=== PATIENT | male | born 1995 | race Caucasian/White ===

== ENCOUNTER → 2020-08-06 11:07 | Outpatient (BNVA) | payer OTHER, SELFPAY | PROVIDERS: PCP Internal Medicine; Visit Provider Urology | DX: R30.0 Dysuria (principal); Z87.442 Personal history of urinary calculi | CPT/HCPCS: 51798 ==

== ENCOUNTER 2020-08-14 17:13 | Emergency (ER) | payer OTHER, SELFPAY ==
[2020-08-14 17:36] VITALS: BP 142/94; PULSE 107; RESP 16; TEMP 36.7; O2SAT 97; BMI 30.2
--- NOTE | 2020-08-14 18:05 | ED.MALEGU ---
HPI - Male Genitourinary General Chief complaint: Urogenital-Male Stated complaint: ABD PAIN Time Seen by Provider: 08/14/20 17:54 Source: patient Mode of arrival: ambulatory Limitations: no limitations History of Present Illness HPI Narrative: Patient comes to the emergency room complaining of dysuria. Patient states he has no abdominal pain or flank pain. Patient states on June 30 he had a right renal stone for which she needed lithotripsy, and the left retained stent was removed. Patient has been doing well since then other than the burning sensation. Denies fever or chills. Patient denies hematuria. Patient denies any suspicion of any sexually transmitted diseases MD Complaint: dysuria Onset (ago): day(s) Severity: mild Exacerbating factors: urination Related Data Previous Rx's Medication Instructions Recorded levofloxacin 500 mg PO Q24H #7 tab 08/14/20 Allergies Allergy/AdvReac Type Severity Reaction Status Date / Time penicillin G Allergy Unknown Verified 06/28/20 00:00 Penicillins [PCN] Allergy Unknown UNKNOWN Unverified 07/15/20 19:39 Review of Systems Review of Systems: Constitutional : No Weight loss, No Fever, No Chills, No Night Sweats, No Fatigue, No Malaise ENT/Mouth : No Hearing loss, No Ear Pain, No Nasal Congestion, No Sinus Pain, No Hoarseness, No sore throat, No Rhinorrhea, No Swallowing Difficulty Eyes: No Eye Pain, No Swelling, No Redness, No Foreign Body, No Discharge, No Vision Changes Cardiovascular : No Chest Pain, No SOB, No Dyspnea on Exertion, No Orthopnea, No Edema, No Palpitations Respiratory : No Cough, No Sputum, No Wheezing, No Smoke Exposure, No Dyspnea Gastrointestinal : No Nausea, No Vomiting, No Diarrhea, No Constipation, No abdominal Pain, No Hematochezia, No Melena Genitourinary : no irregular bleeding, mild Dysuria, No Urinary Frequency, No Hematuria, No Urinary Incontinence, No Urgency, No Flank Pain, No Urinary Flow Changes, No Hesitancy Musculoskeletal : No joint pain, No Myalgias, No Joint Swelling Skin : No Skin Lesions, No rash Neuro : No Weakness, No Numbness, No Paresthesias, No Loss of Consciousness, No Dizziness, No Headache Psych : No Anxiety/Panic, No Depression, No SI/HI/AH/VH, No Social Issues, Heme/Lymph: No Bruising, No Bleeding,No Lymphadenopathy Endocrine : No Polyuria, No Polydipsia, No Temperature Intolerance [facility] Past Medical History Medical History (Updated 08/14/20 @ 19:44 by Reta Askew MD) History of renal calculi Surgical History (Updated 08/14/20 @ 18:08 by Reta Askew MD) H/O lithotripsy Social History Social History Alcohol intake: never Smoking Status: Never smoker Smoked in Last 30 Days: No Use of substances other than those prescribed or required for medical reasons: No Advance Directives: No Advance Directives Information Provided: No Physical Exam Vital Signs: Vital Signs: Vital Signs Temp Pulse Resp BP Pulse Ox 08/14/20 17:36 98.1 F 107 H 16 142/94 H 97 Body Mass Index 30.2 Appearance: Alert. Oriented X3. No acute distress. Eyes: Pupils equal, round and reactive to light. ENT: Pharynx normal. Neck: Normal inspection. Neck supple. No lymph nodes noted. No crepitus CVS: Normal heart rate and rhythm. Pulses normal. Normal S1 and S2 Respiratory: No respiratory distress. Breath sounds normal. No Wheezing. No rales Abdomen: Soft and nontender. No rigidity. No distention. good BS x4 Skin: Skin warm and dry. Normal skin color. Normal skin turgor. Extremities: No lower extremity edema. No lower extremity edema. No Lacerations. No Rash Neuro: Oriented X 3. No motor deficit. No sensory deficit. Moving all extermities. No slurred speech. Course Course Course Narrative: I discussed the labs with the patient, patient has a mild urinary tract infection. MDM - Male Genitourinary MDM Narrative Medical decision making narrative: I discussed with the patient we will treat the urinary tract infection with p.o. antibiotics, at this time there is no suspicion for sepsis Differential Diagnosis Differential diagnosis: Likely urinary tract infection and urethritis Medical Records Attestation: I reviewed the patient's medical records. Lab Data Attestation: I reviewed the patient's lab results. Result diagrams: 08/14/20 18:41 08/14/20 18:41 Labs: Lab Results 10/17/20 10/17/20 10/17/20 Range/Units 18:41 18:41 18:41 WBC 10.5 (4.8-10.8) X10*3/uL RBC 4.55 L (4.60-5.80) X10*6/uL Hgb 14.3 (14.0-18.0) g/dl Hct 41.4 L (42-52) % MCV 91.0 (80-98) fL MCH 31.4 (27.0-33.0) pg MCHC 34.5 (31.0-36.0) g/dl RDW 12.8 (11.0-16.0) % Plt Count 310 (160-400) X10*3/uL MPV 10.0 (9.4-12.4) fL Immature Gran % (Auto) 0.4 (0.0-0.4) % Neut % (Auto) 72.5 (45-73) % Lymph % (Auto) 18.7 L (20-40) % [place] % (Auto) 7.8 (2-11) % Eos % (Auto) 0.4 (0-4) % Baso % (Auto) 0.2 (0-2) % Lymph # (Auto) 2.0 (1.2-4.9) X10*3/uL [place] # (Auto) 0.8 (0.1-1.2) X10*3/uL Eos # (Auto) 0.0 (0.0-0.4) X10*3/uL Baso # (Auto) 0.0 (0.0-0.2) X10*3/uL Abs Immat Gran (auto) 0.04 H (0.00-0.03) X10*3/uL Absolute Neuts (auto) 7.6 (2.0-8.3) X10*3/uL Absolute Nucleated RBC 0.000 (0.0-0.012) X10*3/uL Nucleated RBC % (auto) 0.0 (0.0-0.2) /100WBC Sodium 139 (135-145) mmol/L Potassium 3.6 (3.3-5.1) mmol/l Chloride 103 (96-108) mmol/L Carbon Dioxide 26 (22-29) mmol/L Anion Gap 14 (12-20) BUN 8 L (9-16) mg/dL Creatinine 0.87 (0.5-1.4) mg/dL Estim Creat Clear Calc 115.2 Estimated GFR > 60 Random Glucose 131 H (60-115) mg/dL Calcium 9.5 (8.4-10.2) mg/dL Urine Color YELLOW Urine Appearance CLEAR Urine pH 6.5 (5.0-8.0) Ur Specific [place] 1.010 (1.005-1.025) Urine Protein 1+ H (NEG-TRACE) MG/DL Urine Glucose (UA) NEG (NEG) MG/DL Urine Ketones NEG (NEG) MG/DL Urine Blood 3+ H (NEG) Urine Nitrite NEG (NEG) Ur Leukocyte Esterase 3+ H (NEG) Urine RBC 5-9 H (0) /HPF Urine WBC 10-14 H (0-4) /HPF Ur Squamous Epith Cells 1+ /LPF Urine Bacteria 1+ /LPF Discharge Plan Discharge Clinical Impression: Dysuria Urinary tract infection Qualifiers: Urinary tract infection type: acute cystitis Hematuria presence: without hematuria Qualified Code(s): N30.00 - Acute cystitis without hematuria Patient Disposition: Home, Self-Care Instructions: Urinary Tract Infection in Men (ED) Additional Instructions: Please follow-up with your urologist. Please follow-up with your primary care physician tomorrow. If you have any worsening or new symptoms, please return to the emergency room or call 911 Prescriptions: New levofloxacin 500 mg tablet 500 mg PO Q24H Qty: 7 RF: 0
[2020-08-14 18:46] LABS: MANUAL DIFF FLAG NO
[2020-08-14 18:47] LABS: Basophils Percent Auto 0.2 % (0-2); Eosinophils Percent Auto 0.4 % (0-4); Hematocrit 41.4 % (42-52); Hemoglobin 14.3 g/dl (14.0-18.0); Imm Gran Abs Auto 0.04 X10*3/uL (0.00-0.03); Imm Gran Pct Auto 0.4 % (0.0-0.4); Lymphocytes Percent Auto 18.7 % (20-40); Mean Corpuscular HGB Conc 34.5 g/dl (31.0-36.0); Mean Corpuscular Hemoglobin 31.4 pg (27.0-33.0); Monocytes Absolute Auto 0.8 X10*3/uL (0.1-1.2); Monocytes Percent Auto 7.8 % (2-11); Neutrophils Absolute Auto 7.6 X10*3/uL (2.0-8.3); Neutrophils Percent Auto 72.5 % (45-73); Platelet Count 310 X10*3/uL (160-400); Red Blood Count 4.55 X10*6/uL (4.60-5.80); Red Cell Distribution Width 12.8 % (11.0-16.0); White Blood Count 10.5 X10*3/uL (4.8-10.8)
[2020-08-14 18:48] LABS: Color Urine YELLOW; Glucose Urine UA NEG (NEG); Leukocyte Esterase Urine 3+ (NEG); Nitrite Urine NEG (NEG); PH 6.5 (5.0-8.0); Urine Blood 3+ (NEG); Urine Ketones NEG (NEG); Urine Protein 1+ MG/DL (NEG-TRACE)
[2020-08-14 18:49] LABS: Appearance Urine CLEAR
[2020-08-14 18:58] LABS: Bacteria Urine 1+ /LPF; Squamous Epithelial Cell Urine 1+ /LPF
[2020-08-14 19:19] LABS: Anion Gap 14 (12-20); Blood Urea Nitrogen 8 mg/dL (9-16); Carbon Dioxide 26 mmol/L (22-29); Chloride 103 mmol/L (96-108); Creatinine Clr Calc Pharmacy 115.2; Estimated Glomerular Filt Rate > 60; Glucose Random 131 mg/dL (60-115); Potassium 3.6 mmol/l (3.3-5.1); Sodium 139 mmol/L (135-145)
[2020-08-14 19:24] LABS: Calcium 9.5 mg/dL (8.4-10.2)
[2020-08-14 20:00] VITALS: BP 130/88; PULSE 92; RESP 16; TEMP 37; O2SAT 97
[2020-08-14] MEDS: levoFLOXacin 500 MG TABLET PO (20:14)
== END 2020-08-14 20:23 | disposition home or self-care (01) ==
PROVIDERS: Emergency Provider Emergency Medicine
DX: N30.00 Acute cystitis without hematuria (principal); Z87.442 Personal history of urinary calculi
CPT/HCPCS: 36415; 80048; 81001; 85025; 87086; 87088; 99283; 99284

== ENCOUNTER 2020-08-31 07:36 | Day surgery (SDC) | payer OTHER, SELFPAY ==
--- NOTE | 2020-08-30 11:52 | HO.ANESPROP2 ---
Documented by User: Tanesha Weber 08/30/20 11:54 HPI - Anesthesia Eval Consult details Narrative: 25yo M for cysto, foreign body removal PMFSH Past Medical History Medical History History of renal calculi Surgical History Surgical History H/O lithotripsy Social History Social History Alcohol intake: never Smoking Status: Never smoker Second Hand Smoke Exposure: No Use of substances other than those prescribed or required for medical reasons: No Have you been hit, kicked, punched, or otherwise hurt by someone within the past year? If so, by whom?: No Advance Directives: No Advance Directives Information Provided: No Advance Directives on File: No Meds Allergies Allergy/AdvReac Type Severity Reaction Status Date / Time Penicillins [PCN] Allergy Severe Anaphylaxis Verified 08/31/20 09:16 penicillin G Allergy Unknown Anaphylaxis Verified 08/31/20 08:53 Exam Exam Date and Time: August 30, 2020 1152 Pertinent Lab Results Pertinent Lab Results: Laboratory Tests 08/14/20 08/14/20 18:41 18:41 WBC 10.5 Hgb 14.3 Hct 41.4 L Plt Count 310 Sodium 139 Potassium 3.6 Chloride 103 BUN 8 L Creatinine 0.87 Assessment and Plan Assessment Anesthesia Assessment: Chart Reviewed Documented by User: Joseph Tompkins 08/31/20 10:44 PMFSH Past Medical History Medical History History of renal calculi Surgical History Surgical History H/O lithotripsy Social History Social History Alcohol intake: never Smoking Status: Never smoker Second Hand Smoke Exposure: No Use of substances other than those prescribed or required for medical reasons: No Have you been hit, kicked, punched, or otherwise hurt by someone within the past year? If so, by whom?: No Advance Directives: No Advance Directives Information Provided: No Advance Directives on File: No Meds Allergies Allergy/AdvReac Type Severity Reaction Status Date / Time Penicillins [PCN] Allergy Severe Anaphylaxis Verified 08/31/20 09:16 penicillin G Allergy Unknown Anaphylaxis Verified 08/31/20 08:53 Exam Airway Mallampati Class: III TM Dist: >3cm Neck ROM: Full Heart: RRR Assessment and Plan Assessment Anesthesia Assessment: Anesthesia Plan Discussed Final Anesthetic Review NPO: Yes ASA Class: I Final Preanesthetic Review: Consent Obtained/Reviewed Anesthetic Plan Anesthetic Plan: GA Disposition: Standard PACU
[2020-08-30 13:40] VITALS: BMI 29.2
[2020-08-31] VITALS (8 sets, daily range): BP systolic 104–148; BP diastolic 60–94; PULSE 71–97; RESP 14–20; TEMP 36.1–36.8; O2SAT 94–98
[2020-08-31] MEDS: Lactated Ringers 1,000 ML 100 ML IVCONT (09:16)
[2020-08-31] MEDS: Gentamicin Sulfate/NaCl 80 MG/100 ML PIGGYBACK 100 MG IV (09:17)
[2020-08-31] MEDS: levoFLOXacin/D5W 500 MG/100 ML PIGGYBACK 100 MG IV (09:17)
--- NOTE | 2020-08-31 10:37 | FL_ITS ---
EXAMINATION: XR FLUOROSCOPY WITH IMAGES CLINICAL INFORMATION: Cystoscopy. Foreign body removal. COMPARISON: Previous KUB June [address] intraoperative fluoroscopy exam May 2020 TECHNIQUE: Fluoroscopy performed by Dr. Roberto Graham. Fluoroscopy time: 13 seconds DAP: 4 mGycm2 Images: 1 FINDINGS: Single image demonstrates left renal calyceal dilatation. The left renal pelvis does not appear dilated. The visualized left proximal ureter does not appear dilated. Questioned left lower pole renal stone on KUB from June 2020 are not appreciated. Left ureteral stent is no longer seen. FL/FL guidance in OR IMPRESSION: Fluoroscopy guidance for left retrograde exam.
--- NOTE | 2020-08-31 10:52 | MHC.SHP ---
Pre-Procedural Eval Section B Chief Complaint: dysuria Details of Present Illness: dysuria Relevant Family History (Specify if Yes): No Relevant Social History: None Present Medications: see Short Stay Collaborative assessment Medical History: Significant History History of Previous Operations: Relevant previous surgery/procedure and date(s) Allergies: Allergies Allergy/AdvReac Type Severity Reaction Status Date / Time Penicillins [PCN] Allergy Severe Anaphylaxis Verified 08/31/20 09:16 penicillin G Allergy Unknown Anaphylaxis Verified 08/31/20 08:53 Review of Systems Sugical H&P ROS: Negative: Constitution, Cardiovascular, Respiratory, Neurological, Psychiatric, Hem-Onc, Allergic/Immunologic, Gastrointestinal, Genitourinary, Musculoskeletal, Integumentary, Endocrine and Eyes/Ears/Nose/Throat Exam Surgical H&P Exam: Normal: HEENT, Normal: Heart, Normal: Lungs, Normal: Extremities, Normal: Abdomen, Normal: Skin and Normal: Neurological Plan Diagnosis/Plan: Unchanged Patient has been examined and remains a candidate for the planned procedure
--- NOTE | 2020-08-31 11:37 | PM.OP ---
Brief Operative Note Date of procedure: 08/31/20 Pre-op diagnosis: Left ureteric stent Post-op diagnosis: same Procedure: Cysto stent removal Retrograde left Ureteroscopy left diagnostic Surgeon: Roberto Graham MD Anesthesia: GLMA Estimated blood loss (mL): 0 Condition: stable Disposition: same day
[2020-08-31] MEDS: Phenazopyridine HCL 100 MG TABLET PO (12:41)
--- NOTE | 2020-08-31 12:47 | HO.POSTANES ---
Post Anesthesia Evaluation Post Anesthesia Evaluation Vital Signs: Vital Signs Temp Pulse Resp BP Pulse Ox 08/31/20 12:25 97 F 97 16 115/72 96 08/31/20 12:12 82 16 114/70 96 08/31/20 11:57 89 20 110/60 94 08/31/20 11:52 97 18 104/71 95 08/31/20 11:47 92 17 106/61 98 08/31/20 11:42 74 16 109/64 94 08/31/20 11:37 98.2 F 71 14 109/60 97 08/31/20 08:54 97.8 F 88 16 148/94 H 96 Anesthesia: General Mental Status: Awake Pain Control: Satisfactory Nausea/Vomiting: None Hydration: Adequate Anesthesia-Related Issues: No Anes. Related Issues
--- NOTE | 2020-12-02 14:22 | P.OP_ITS ---
Operative Note Operative Note Date of Service: 08/31/20 Narrative: PreOperative Diagnosis: Nephrolithiasis Post Operative Diagnosis: Nephrolithiasis Procedure: 1) Cystoscopy with removal of left indwelling stent 2) left retrograde 3) left ureteroscopy Surgeon: Dr Roberto Graham Anesthesia: General Indications for procedure: Had pain and question of stone on the left side. Stent was placed. Here 1st stent removal and diagnostic ureteroscopy Procedure: After informed consent was verified the patient was brought to the operating room and placed in a supine position. anesthesia was administered per protocol. Patient was placed in modified dorsal lithotomy position and prepped and draped in a sterile fashion. Safety pause time-out performed. Twenty-two [place] cystoscope inserted per urethra. No anterior posterior urethra Stent seen coming from left ureteric office and removed Ureteroscopy performed with rigid ureteroscope. No abnormality noted of the ureter. May have passed a stone that was previously them. Decision made not to place stent Tolerated procedure well was extubated in operating room transferred in stable condition to the recovery area. Pathology: None Drains: None
== END 2020-08-31 12:56 | disposition home or self-care (01) ==
PROVIDERS: Visit Provider Urology
PROC: 0TJB8ZZ Inspection of Bladder, Via Natural or Artificial Opening Endoscopic (ICD-10-PCS; CPT 52000; principal; 2020-08-31 09:20)
DX: R30.0 Dysuria (principal); Z46.6 Encounter for fitting and adjustment of urinary device; Z96.0 Presence of urogenital implants; Z87.442 Personal history of urinary calculi; Z88.0 Allergy status to penicillin
CPT/HCPCS: 52310; C1758; C1769; J1580; J1956; J2250; J2405; J3010; Q9967

== ENCOUNTER 2022-06-25 13:00 | Emergency (ER) | payer OTHER, SELFPAY ==
--- NOTE | ~2022-06-25 | CT_ITS ---
EXAMINATION: CT CERVICAL SPINE without contrast CLINICAL INFORMATION: Reason for Exam neck pain radiating down L arm with numbness COMPARISON: No prior CT available, TECHNIQUE: Computed axial sagittal and coronal images acquired using department's standard protocol. This CT examination was performed using dose optimization techniques as appropriate, variously including the following: *Automated exposure control *Adjustment of mA and/or kV according to patient size (this includes techniques or standardized protocols for targeted exams where dose is matched to indication/reason for exam; i.e. extremities or head) *Use of iterative reconstruction technique CONTRAST: None DLP: 501 mGy-cm FINDINGS: SKULL BASE: Visualized structures at skull base are normal, Included facial sinuses are clear, CERVICAL VERTEBRAE: Seven cervical vertebrae identified maintaining proper height and alignment, DISCS: C1-C2: There is no CT evidence of significant osseous narrowing of the central canal or neural foramen. C2-C3: There is no CT evidence of significant osseous narrowing of the central canal or neural foramen. C3-C4: There is no CT evidence of significant osseous narrowing of the central canal or neural foramen. C4-C5: There is no CT evidence of significant osseous narrowing of the central canal or neural foramen. C5-C6: There is no CT evidence of significant osseous narrowing of the central canal or neural foramen. C6-C7: There is no CT evidence of significant osseous narrowing of the central canal or neural foramen. C7-T1: There is no CT evidence of significant osseous narrowing of the central canal or neural foramen. PARAVERTEBRAL SOFT TISSUE: Paravertebral soft tissues unremarkable. CT/CT cervical spine wo con IMPRESSION: No CT evidence of osseous changes to explain patient's pain symptoms, if remain symptomatic may consider correlation with MRI to assess for soft tissue derangement/neuropathy.
[2022-06-25 13:03] VITALS: BP 151/103; PULSE 110; RESP 14; TEMP 36.6; O2SAT 98; BMI 31.8
--- NOTE | 2022-06-25 14:58 | ED_ITS ---
HPI - Extremity Problem General Chief complaint: Extremity Injury, Upper Stated complaint: L arm numbness radiating from neck Time Seen by Provider: 06/25/22 14:27 Source: patient Mode of arrival: ambulatory Limitations: no limitations History of Present Illness HPI Narrative: Patient presents emergency department for evaluation of neck pain radiating down the left arm with numbness. Onset approximately 1.5 weeks ago. The pain has been overall constant, with intermittent numbness to the distal tip of the thumb and 2nd and 3rd digit. Some subjective weakness to the left hand. Is described as a sharp pain, stabbing pain. Aggravated with movement of neck, particularly lateral bending towards the right side. Denies alleviating factors. He states that he was evaluated at an urgent care approximately 2 days after his symptoms had 1st started. He was advised that he had pulled a muscle, was given medication for prednisone taper over 9 days and cyclobenzaprine neither which he reports were helpful for his pain. Denies any prior injury issues with neck left shoulder or arm pain. Denies fevers, chills, neck stiffness, headache, chest pain, palpitations, shortness of breath, difficulty breathing, denies pain to the mid or lower back, no numbness or tingling to the lower extremities. Gait is normal. He denies any specific precipitating events, however he is active in exercise performing strength training as well as aerobic exercise. Related Data Previous Rx's Medication Instructions Recorded levofloxacin 500 mg tablet 500 mg PO Q24H #7 tabs 08/14/20 gabapentin 100 mg capsule 100 mg PO TID #10 caps 06/25/22 Allergies Allergy/AdvReac Type Severity Reaction Status Date / Time Penicillins [PCN] Allergy Severe Anaphylaxis Verified 08/31/20 09:16 penicillin G Allergy Unknown Anaphylaxis Verified 08/31/20 08:53 Review of Systems Review of Systems: Constitutional: No weight loss. No fever. No chills. No weakness. No fatigue. Skin: No rash. No itching. Cardiovascular: No chest pain. No chest pressure. No palpitations. No pedal edema. Respiratory: No shortness of breath. No cough. No sputum production. Gastrointestinal: No nausea. No vomiting. No diarrhea. No abdominal pain. Genitourinary: No burning micturition. No urinary frequency. No incontinence. Neurologic: No headache. No dizziness. No unilateral weakness. No ataxia. Positive numbness. No tingling. No change in bowel or bladder control. Musculoskeletal: Positive left shoulder/arm pain Positive neck pain. No back pain. No joint pain. No stiffness. Hematologic: No bleeding. No bruising. Yes all other systems are reviewed and are negative PMFSH Past Medical History Attestation statement: The following information was validated with the patient. Source: old records reviewed Medical History History of renal calculi Surgical History H/O lithotripsy Social History Social History Alcohol intake: never Second Hand Smoke Exposure: No Advance Directives: No Advance Directives Information Provided: No Physical Exam Vital Signs: Vital Signs: Last Vital Signs Temp 98 F 06/25/22 13:03 Pulse 110 H 06/25/22 13:03 Resp 14 06/25/22 13:03 BP 151/103 H 06/25/22 13:03 Pulse Ox 98 06/25/22 13:03 O2 Del Method 06/25/22 13:03 BMI result Body Mass Index 31.8 Appearance: Alert.?Oriented to person, place and time. No acute distress.?Normal affect. Eyes: Pupils equal, round and reactive to light.? ENT: Pharynx normal.?? Neck: Normal inspection.? Neck supple.??No midline cervical spine tenderness, step-offs, deformities. Mild palpable tenderness along the left paraspinal muscles and into the left trapezius. CVS: Heart sounds normal. Normal heart rate and rhythm.? Pulses normal.?? Respiratory: No respiratory distress.? Lung sounds clear to auscultation bilaterally?? Abdomen: Soft and non-tender. Normoactive bowel sounds. No pulsatile mass.?? Skin: Skin warm and dry.? Normal skin color.? Normal skin turgor.?? Extremities: No lower extremity edema.? Full AROM to left shoulder elbow wrist and hand. Palpable 2+ radial pulse bilaterally. Sensation intact. [employer] Sorting strength 5/5 on right, 4/5 on left. 5/5 proximal left upper extremity strength, 5/5 distal left upper extremity strength. Neuro: Moves all extremities spontaneously. Sensation intact bilaterally. CN II- XII intact. No focal neuro deficits. Ambulates with normal steady gait. Course Course Course Narrative: Patient is a 27-year-old male who presents emergency department for evaluation of neck pain with radiation across the left shoulder down the arm intermittent numbness to the distal tips of the 1st through 3rd digit. On physical exam there is mild weakness of the left hand grasp. Otherwise neurovascular exam is unremarkable. He has trialed gentle stretching exercise, prednisone taper, and muscle relaxant without any improvement. CT of the cervical spine reveals no acute osseous abnormalities. Pain does appear most consistent with a radicular pain, will trial a short course of gabapentin, advised to contact primary care provider tomorrow to arrange for an office visit for further evaluation and treatment. Did discuss that he may require a course of physical therapy, possible nerve studies, or MRI at their discretion, or referral to specialist. Reviewed worsening signs symptoms return back to the emergency department for. All questions were answered, and patient was discharged home in stable condition. Ambulatory at the emergency department with steady gait. MDM - Extremity (Nontraumatic) Imaging Data CT neck: Radiologist's impression: CT/CT cervical spine wo con IMPRESSION: No CT evidence of osseous changes to explain patient's pain symptoms, if remain symptomatic may consider correlation with MRI to assess for soft tissue derangement/neuropathy. Discharge Plan Discharge Clinical Impression: Cervical radiculopathy Patient Disposition: Home, Self-Care Instructions: Cervical Radiculopathy (ED) Additional Instructions: As we discussed the CT of your cervical spine did not reveal any acute abnormalities. Please contact your primary care provider's office tomorrow to schedule an outpatient appointment for further follow-up and evaluation. You trialed prednisone and cyclobenzaprine already without improvement. You have been given a new prescription for gabapentin to trial for pain. This medication may make you drowsy, you should not drive, operate machinery, go to work, or drink alcohol while taking this medication. Please return to the emergency department any new or worsening symptoms or concerns. Prescriptions: New gabapentin 100 mg capsule 100 mg PO TID Qty: 10 0RF No Action levofloxacin 500 mg tablet 500 mg PO Q24H Qty: 7 0RF Interventions: ED Discharge Assessment Last Done: 06/25/22 16:37 Discharge Date/Time: 06/25/22 16:38
[2022-06-25] MEDS: Ibuprofen 600 MG TABLET PO (15:16)
[2022-06-25] MEDS: Acetaminophen 325 MG TABLET 975 MG PO (15:16)
[2022-06-25 16:00] VITALS: BP 137/100; PULSE 83; RESP 16; TEMP 36.7; O2SAT 97
== END 2022-06-25 16:38 | disposition home or self-care (01) ==
PROVIDERS: Emergency Provider Emergency Medicine
DX: M54.2 Cervicalgia (principal); M54.12 Radiculopathy, cervical region; Z79.899 Other long term (current) drug therapy
CPT/HCPCS: 72125; 99284

== ENCOUNTER 2025-03-19 13:43 | Outpatient (AMB) | payer OTHER, SELFPAY ==
--- NOTE | 2025-03-19 13:59 | MHC.PC.OV ---
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 Intake Note: Panda presents in the office today to establish care/medication follow up Allergies Penicillins [PCN] Allergy (Severe, Verified 03/19/25 14:02) Anaphylaxis penicillin G Allergy (Unknown, Verified 03/19/25 14:02) Anaphylaxis Tobacco use date assessed: 03/19/25 Dental Screening Dental Screen Date: 03/19/25 Did you have a dental visit in the last 12 months?: Yes Did you have a dental problem in the last 6 months where you did not have access to dental care?: No Was dental information given to patient?: Patient has dentist HPI HPI Comments History of Present Illness Details This is a 29-year-old male with a past medical history of nephrolithiasis, hypertension and depression with anxiety presenting to establish care. He saw me at [facility] primary care. Depression with anxiety-Zoloft ineffective. He has been doing very well on fluoxetine 10 mg daily. He has a stressful job. 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 He is currently in a relationship, and his partner is having a baby in the next couple of weeks. Hypertension-treated with lisinopril-hydrochlorothiazide 10-12.5 mg daily. His blood pressure is a little soft today, but he denies dizziness, chest pain, fatigue or shortness of breath. Initial HR 121 when he arrived and 104 upon recheck. Reports taking OTC allergy med with decongestant and having fast food prior to appointment. ROS: Constitutional: No unexplained weight loss, fever, chills, fatigue or night sweats. Respiratory: No shortness of breath, cough or sputum production. Cardiovascular: No chest pain, chest pressure or chest discomfort. No palpitations or pedal edema. Neurologic: No headache, dizziness, syncope Endocrine: No cold or heat intolerance. No polyuria or polydipsia. Psychiatric: No depression or anxiety. No SI/HI. Physical exam: Constitutional: Alert, in no distress. Neck: Supple, Full range of motion. No lymphadenopathy. Respiratory: Clear to auscultation. Cardiovascular: S1 S2 regular. No murmurs. Tachycardic. No carotid bruits. Neurologic: No focal neurological deficits. Extremities: Warm and well perfused. No clubbing, cyanosis or edema. Psychiatric: Normal mood and affect [facility] Medical History (Updated 03/19/25 @ 20:16 by APPLE Beltran) Tachycardia Chiari I malformation Screening for cardiovascular condition Depression with anxiety Nephrolithiasis Hypertension History of renal calculi Surgical History H/O lithotripsy Family History (Updated 03/19/25 @ 14:18 by Juliet Wolf MA) Mother Substance abuse Alcoholism Hypertension Father Hypertension Hyperlipemia Diabetes Maternal Grandmother Hypertension Paternal Grandmother Hypertension Clotting disorder Maternal Grandfather Hypertension Cardiovascular disease Paternal Grandfather Hypertension Hyperlipemia Diabetes Cardiovascular disease Cancer Lung cancer Social History (Updated 03/19/25 @ 14:06 by Juliet Wolf MA) Housing: House Alcohol intake: current Patient Tobacco Use Status: Never used Tobacco e-Cigarette/Vaping Use: Never Used Second Hand Smoke Exposure: Yes service: No Current occupational status: employed Current occupation: [employer] Current occupational exposures/hazards: Yes Cognitive needs: No Hearing needs: No Vision needs: No Questionnaire PHQ-9 Over the last 2 weeks, how often have you been bothered by any of the following problems? 1. Little interest or pleasure in doing things: not at all 2. Feeling down, depressed, or hopeless: not at all 3. Trouble falling or staying asleep, or sleeping too much: not at all 4. Feeling tired or having little energy: not at all 5. Poor appetite or overeating: not at all 6. Feeling bad about yourself - or that you are a failure or have let yourself or your family down: not at all 7. Trouble concentrating on things, such as reading the newspaper or watching television: not at all 8. Moving or speaking so slowly that other people could have noticed. Or the opposite - being so fidgety or restless that you have been moving around a lot more than usual: not at all 9. Thoughts that you would be better off or of hurting yourself in some way: not at all Total score: 0 Depression Screening Interpretation: Negative Depression Screening Done: Yes 39830 - PHQ-9 Billing: Yes Source: Developed by Drs. Vineet Murray, Shayy Medina, Naif Stark and colleagues, with an educational mehdi from [employer]. Thrive Questionnaire Date Thrive assessed: 03/19/25 I am a: Patient What is your living situation today?: I have a steady place to live Within the past 12 months, did the food you bought not last and you didn't have the money to get more?: Never true Within the past 12 months, did you worry whether your food would run out before you got money to buy more?: Never true Do you have trouble paying for medicines?: No Do you have trouble getting transportation to medical appointments?: No Do you have trouble paying your heating and electricity bill?: No Do you have trouble taking care of your child, family member or friend?: No Do you have trouble with day-to-day activities such as bathing, preparing meals, shopping, managing finances, etc.?: No Are you currently unemployed and looking for a job?: No Are you interested in more education?: No Please select the resources that you would like help with: None Currently or been in a relationship where the following occur: No concerns reported THRIVE Score: 0 AUDIT C Alcohol Use Questionnaire (AUDIT-C) 1. How often do you have a drink containing alcohol?: Monthly or less 2. How many drinks containing alcohol do you have on a typical day when you are drinking?: 1 or 2 3. How often do you have six or more drinks on one occasion?: Never Total Score: 1 Score Reviewed/Action Taken: No TONY-7 AMB Questionnaire TONY-7 Date TONY - 7 assessed: 03/19/25 Feeling nervous, anxious, or on edge: 0 = Not at all Not being able to stop or control worryin = Not at all Worrying too much about different things: 0 = Not at all Trouble relaxin = Not at all Being so restless that it is hard to sit still: 0 = Not at all Becoming easily annoyed or irritable: 0 = Not at all Feeling afraid as if something awful might happen: 0 = Not at all Total TONY-7 score (0-4 normal; 5-9 mild; 10-14 moderate; 15-21 severe): 0 Source: Developed by Drs. Vineet Murray, Shayy Medina, Naif Stark and colleagues, with an educational mehdi from [employer]. TONY-7 Assessment Billing TONY-7 Assessment Tool: TONY-7 Assessment 65123 Physical exam (Primary Care) Vital Signs: Last Vital Signs Temp 98.2 F 03/19/25 14:07 Pulse 104 H 03/19/25 14:29 BP 100/62 03/19/25 14:07 Pulse Ox 96 03/19/25 14:07 Oxygen Delivery Method Room Air 03/19/25 14:07 BMI result Body Mass Index 33.7 Tobacco/Smoking Status: Tobacco use Status Tobacco use date assessed 03/19/25 03/19/25 14:17 Patient Tobacco Use Status Never used Tobacco 03/19/25 14:17 e-Cigarette/Vaping Use Never Used 03/19/25 14:17 PHQ-9: PHQ-9 Score PHQ-9: Total score 0 03/19/25 15:09 Depression Screening Interpretation: Negative Thrive Assessment: Date of Thrive Assessment Date Thrive assessed 03/19/25 03/19/25 14:17 Currently or been in a relationship where the following occur: No concerns reported Office Procedures EKG Details: EKG could not be interpreted due to poor date quality. 89769-[id number], Complete Coding Level of Care Code Est Pt Level 4 (69995) Complex EM visit Add On G2211 Diagnoses Hypertension I10 Depression with anxiety F41.8 Tachycardia R00.0 CPT Codes EKG - CPT: 18130-[id number], Complete ([id number]) Additional Codes TONY-7 Assessment Billing - TONY-7 Assessment Tool: TONY-7 Assessment 70878 ([id number]) PHQ-9 - 26946 - PHQ-9 Billing: Yes ([id number]) Assessment & Plan Assessment & Plan (1) Hypertension: Code(s): I10 - Essential (primary) hypertension Category: Medical Plan: Blood pressure is soft today, but he denies symptoms. Patient says this is not typical for him. Increase fluids. Monitor at home and call if blood pressure is less than 100/55. Continue lisinopril-hydrochlorothiazide. (2) Depression with anxiety: Code(s): F41.8 - Other specified anxiety disorders Category: Medical Plan: Stable. Continue fluoxetine 10 mg daily. (3) Tachycardia: Code(s): R00.0 - Tachycardia, unspecified Category: Medical Plan: HR decreased when rechecked, but EKG could not be interpreted due to poor data quality - due to hair. He will remove the hair and return for a nurse visit for an EKG. Adivsed patient to avoid caffeine and avoid OTC meds containing decongestants. Plan He will have fasting labs done and schedule a physical in 6 months. Orders: Orders TSH reflex Free T4 Today F41.8 - Other specified anxiety disorders, I10 - Essential (primary) hypertension, N20.0 - Calculus of kidney, Z13.6 - Encounter for screening for cardiovascular disorders Complete Blood Count no Diff Today F41.8 - Other specified anxiety disorders, I10 - Essential (primary) hypertension, N20.0 - Calculus of kidney, Z13.6 - Encounter for screening for cardiovascular disorders Comprehensive Met. Panel Today F41.8 - Other specified anxiety disorders, I10 - Essential (primary) hypertension, N20.0 - Calculus of kidney, Z13.6 - Encounter for screening for cardiovascular disorders CT NG by PCR Today F41.8 - Other specified anxiety disorders, I10 - Essential (primary) hypertension, N20.0 - Calculus of kidney, Z13.6 - Encounter for screening for cardiovascular disorders, Z20.2 - Contact with and (suspected) exposure to infections with a predominantly sexual mode of transmission AMB EKG-In Office Today I10 - Essential (primary) hypertension Lipid Panel Today F41.8 - Other specified anxiety disorders, I10 - Essential (primary) hypertension, N20.0 - Calculus of kidney, Z13.6 - Encounter for screening for cardiovascular disorders Syphilis Screen Today F41.8 - Other specified anxiety disorders, I10 - Essential (primary) hypertension, N20.0 - Calculus of kidney, Z13.6 - Encounter for screening for cardiovascular disorders, Z20.2 - Contact with and (suspected) exposure to infections with a predominantly sexual mode of transmission HIV Ab/Ag Today F41.8 - Other specified anxiety disorders, I10 - Essential (primary) hypertension, N20.0 - Calculus of kidney, Z13.6 - Encounter for screening for cardiovascular disorders, Z20.2 - Contact with and (suspected) exposure to infections with a predominantly sexual mode of transmission Hepatitis C Antibody Today F41.8 - Other specified anxiety disorders, I10 - Essential (primary) hypertension, N20.0 - Calculus of kidney, Z13.6 - Encounter for screening for cardiovascular disorders, Z20.2 - Contact with and (suspected) exposure to infections with a predominantly sexual mode of transmission Medications: New lisinopril-hydrochlorothiazide 10-12.5 mg 1 tab PO DAILY 90 tabs 3RF Discontinued levofloxacin Discontinued Reason: Patient no longer taking 500 mg PO Q24H 7 tabs 0RF gabapentin Discontinued Reason: Patient no longer taking 100 mg PO TID 10 caps 0RF
[2025-03-19 14:07] VITALS: BP 100/62; PULSE 121; TEMP 36.8; O2SAT 96; BMI 33.7
[2025-03-19 14:29] VITALS: PULSE 104
== END 2025-03-19 15:12 | disposition home or self-care (01) ==
LOC: HO.HMCFM 13:44
PROVIDERS: PCP Physician Assistant Medical; Visit Provider Physician Assistant Medical
DX: I10 Essential (primary) hypertension (principal); F41.8 Other specified anxiety disorders; R00.0 Tachycardia, unspecified

== ENCOUNTER → 2025-03-19 13:43 | Outpatient (BNVA) | payer OTHER, SELFPAY | PROVIDERS: PCP Physician Assistant Medical; Visit Provider Physician Assistant Medical | DX: I10 Essential (primary) hypertension (principal); F41.8 Other specified anxiety disorders; R00.0 Tachycardia, unspecified; N20.0 Calculus of kidney; Z79.899 Other long term (current) drug therapy | CPT/HCPCS: 93005; 96127 ==

== ENCOUNTER 2025-03-24 12:22 | Outpatient (REF) | payer OTHER, SELFPAY ==
[2025-03-24 13:41] LABS: Hemoglobin 15.7 g/dl (14.0-18.0); Mean Corpuscular HGB Conc 35.7 g/dl (31.0-36.0); Mean Corpuscular Volume 89.8 fL (80.0-98.0); Mean Platelet Volume 10.1 fL (9.4-12.4); Platelet Count 353 X10*3/uL (160-400); Red Cell Distribution Width 12.6 % (11.0-16.0); White Blood Count 9.2 X10*3/uL (4.8-10.8)
[2025-03-24 14:16] LABS: Alanine Aminotransferase 76 U/L (0-40); Alkaline Phosphatase 93 U/L (39-117); Anion Gap 15 (12-20); Aspartate Amino Transferase 43 U/L (5-37); Bilirubin Total 0.5 mg/dL (0.0-1.0); Blood Urea Nitrogen 14 mg/dL (9-16); Calcium 10.1 mg/dL (8.4-10.2); Carbon Dioxide 26 mmol/L (22-29); Chloride 101 mmol/L (96-108); Cholesterol 306 mg/dL (<200); Estimated Glomerular Filt Rate > 60; Glucose Random 86 mg/dL (60-115); HDL Cholesterol 50 mg/dL (>40); LDL Cholesterol Calculated 219 mg/dL (<100); Sodium 138 mmol/L (135-145); TSH reflex Free T4 1.23 uIU/mL (0.32-4.0); Total Protein 8.4 g/dL (6.5-8.0); Triglycerides 187 mg/dL (<150)
[2025-03-25 09:18] LABS: HIV AB/AG Nonreactive (Nonreactive); HIV Num 1 0.07 S/CO (0.00-0.99); Syphilis Screen Nonreactive (Nonreactive); ~HepC Num1 1.16 S/CO (0.00-0.79); ~Hepatitis C Antibody Reactive (Nonreactive)
== END 2025-03-24 12:23 | disposition home or self-care (01) ==
LOC: HO.LAB 12:22
PROVIDERS: PCP Physician Assistant Medical; Visit Provider Physician Assistant Medical
DX: I10 Essential (primary) hypertension (principal); N20.0 Calculus of kidney; F41.8 Other specified anxiety disorders; Z13.6 Encounter for screening for cardiovascular disorders; Z20.2 Contact with and (suspected) exposure to infections with a predominantly sexual mode of transmission
CPT/HCPCS: 36415; 80053; 80061; 84443; 85027; 86780; 86803; 87389

== ENCOUNTER 2025-04-28 12:08 | Outpatient (REF) | payer OTHER, SELFPAY ==
[2025-04-28 12:58] LABS: Alanine Aminotransferase 45 U/L (0-40); Aspartate Amino Transferase 30 U/L (5-37)
[2025-04-28 13:17] LABS: HBS Num1 0.49 mIU/mL (0-7.99); HBc Num1 0.26 S/CO (0.00-0.79); HBsAGNum1 0.56 S/CO (0.00-0.99); Hepatitis A Antibody IgM 0.21 Index (0-0.79); Hepatitis B Surface Antigen Negative (Negative); ~HepC Num1 0.88 S/CO (0.00-0.79); ~Hepatitis A Antibody IgM Nonreactive (Nonreactive); ~Hepatitis B Surface Antibody NONREACTIVE (Nonreactive)
[2025-04-28 14:07] LABS: ~HepC Num2 0.90; ~HepC Num3 0.83; ~Hepatitis C Antibody GRAYZONE (Nonreactive)
== END 2025-04-28 12:09 | disposition home or self-care (01) ==
LOC: HO.LAB 12:08
PROVIDERS: PCP Physician Assistant Medical; Visit Provider Physician Assistant Medical
DX: R79.89 Other specified abnormal findings of blood chemistry (principal)
CPT/HCPCS: 36415; 84450; 84460; 86704; 86706; 86709; 86803; 87340

== ENCOUNTER 2025-05-14 07:23 | Outpatient (REF) | payer OTHER, SELFPAY ==
--- NOTE | ~2025-05-14 | US_ITS ---
EXAMINATION: US ABDOMEN LIMITED WITH LIVER ELASTOGRAPHY HISTORY: R79.89 - Other specified abnormal findings of blood chemistry, elevated LFTs TECHNIQUE: Real-time grayscale ultrasound imaging of the right upper quadrant was performed and images were reviewed. COMPARISON: Correlation is made with a CT of the abdomen without contrast dated 06/18/2020. FINDINGS: Liver: The right lobe of the liver measures 16.2 cm in size. The left lobe of the liver measures 10.7 cm in size. The liver demonstrates increased echotexture, consistent with steatosis. No focal mass or intrahepatic biliary ductal dilatation is identified. There is normal hepatopedal flow in the portal vein. Ultrasound elastography of the liver was performed with 10 separate measurements of the liver parenchyma with the patient in the supine position. Measurements were obtained approximately 2 cm below Elieser's capsule and perpendicular to the capsule. The median shear wave velocity is 1.33 m/s. The interquartile range/median (IQR/median) is 0.14. Gallbladder and biliary tree: The gallbladder is unremarkable, without evidence of calculi, wall thickening, or pericholecystic fluid. There is no sonographic Agurire sign. The common bile duct is normal in caliber measuring 3 mm. Right Kidney: The right kidney measures 10.2 cm in length. Multiple nonobstructing calculi are noted, the largest of which is in the interpolar region measuring 3 mm in size. There is no hydronephrosis or mass. Pancreas: The pancreatic head, neck, and body are unremarkable. The pancreatic tail is obscured by bowel gas. Abdominal aorta and inferior vena cava: The visualized portions of the abdominal aorta and inferior vena cava are normal in caliber. There is no free fluid in the right upper quadrant. US/US abdomen lubin w elastography IMPRESSION: 1. Hepatic steatosis. 2. Right nephrolithiasis as described. No hydronephrosis. The median shear wave velocity in the liver is 1.33 m/s, corresponding to a median liver stiffness of 5.35 kPa. The IQR/median value is 0.14. This is indicative of a quality data set. Findings are indicative of a low elastography value which rules out advanced chronic liver disease in asymptomatic patients. REFERENCE: Society of Radiologists in Ultrasound Liver Stiffness Thresholds (2019): LIVER STIFFNESS THRESHOLDS: *Shear wave velocity less than 1.3 m/s (Liver Stiffness equal or less than 5 kPa): High probability of being normal. *Shear wave velocity less than 1.7 m/s (Liver Stiffness less than 9 kPa): In the absence of other known clinical signs, rules out compensated advanced chronic liver disease. *Shear wave velocity between 1.7-2.1 m/s (Liver Stiffness 9-13 kPa): Suggestive of compensated advanced chronic liver disease but need further test for confirmation. *Shear wave velocity between 2.1-2.4 m/s (Liver Stiffness 13-17 kPa): Rules in compensated advanced chronic liver disease. *Shear wave velocity greater than 2.4 m/s (Liver Stiffness over 17 kPa): Suggestive of clinically significant portal hypertension. QUALITY OF DATA SET: *IQR/Median value equal or less than 0.15 implies a quality data set. *IQR/Median value over 0.15 implies a poor quality data set. SIGNIFICANT CHANGE FROM PRIOR EXAM: Significant change if liver stiffness measurement is 10% or greater from prior exam. OTHER CONSIDERATIONS: The stage of liver fibrosis may be overestimated in the setting of acute hepatitis, liver inflammation, elevated liver function tests, hepatic vascular congestion, obstructive cholestasis, non-fasting state, and infiltrative diseases such as amyloidosis and lymphoma. In some patients with NAFLD, the liver stiffness thresholds for compensated advanced chronic liver disease may be lower. In causes other than viral hepatitis and NAFLD, liver stiffness thresholds are not well established. Electronically signed by: Vineet Harding MD 05/14/2025 08:11 AM EDT
== END 2025-05-14 07:24 | disposition home or self-care (01) ==
LOC: HO.US 07:23
PROVIDERS: PCP Physician Assistant Medical; Visit Provider Physician Assistant Medical
DX: R79.89 Other specified abnormal findings of blood chemistry (principal)
CPT/HCPCS: 76705; 76981

== ENCOUNTER → 2025-05-14 07:25 | Outpatient (BNV) | payer OTHER, SELFPAY | PROVIDERS: PCP Physician Assistant Medical; Visit Provider Radiology Diagnostic Radiology | DX: K76.0 Fatty (change of) liver, not elsewhere classified (principal); N20.0 Calculus of kidney | CPT/HCPCS: 76705 ==

== ENCOUNTER 2025-07-10 08:27 | Outpatient (AMB) | payer OTHER, SELFPAY ==
--- NOTE | 2025-07-10 08:39 | A.OFFVIS_ITS ---
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 He is a patient of Dr. Bashir. He is seen for the following urologic conditions - nephrolithiasis Stone seen during liver ultrasonography We will get renal ultrasound to confirm Known recurrent stone former Four month follow-up imaging with ureteric Nephrolithiasis Caleb presents for - recurrent stone former Presenting symptoms included flank pain with associated nausea Family History - positive Imaging - 07/23 liver ultrasonography with 3 mm stones multiple in right kidney Laboratory investigations - 07/23 Cr 0.9 Stone composition - 07/18 calcium oxalate dihydrate 60% 24 hour urine evaluation - none on file Interventions - prior ultrasonography Current therapeutic plan - surveillance imaging [facility] Medical History (Updated 05/15/25 @ 17:00 by APPLE Beltran) Hepatic steatosis Abnormal EKG Positive hepatitis C antibody test Elevated LFTs Hyperlipidemia Tachycardia Chiari I malformation Screening for cardiovascular condition Depression with anxiety Nephrolithiasis Hypertension History of renal calculi Surgical History H/O lithotripsy Family History (Updated 03/19/25 @ 14:18 by Juliet Wolf MA) Mother Substance abuse Alcoholism Hypertension Father Hypertension Hyperlipemia Diabetes Maternal Grandmother Hypertension Paternal Grandmother Hypertension Clotting disorder Maternal Grandfather Hypertension Cardiovascular disease Paternal Grandfather Hypertension Hyperlipemia Diabetes Cardiovascular disease Cancer Lung cancer Social History (Updated 03/19/25 @ 14:06 by Juliet Wolf MA) Housing: House Alcohol intake: current Patient Tobacco Use Status: Never used Tobacco e-Cigarette/Vaping Use: Never Used Second Hand Smoke Exposure: Yes service: No Current occupational status: employed Current occupation: [employer] Current occupational exposures/hazards: Yes Cognitive needs: No Hearing needs: No Vision needs: No Review of Systems Const Denies chills and Denies fever(s) Card Reports no additional complaints and Denies syncope Resp Denies cough GI Denies abdominal pain and Denies heartburn Reports as per HPI and Denies change in libido Neuro Denies syncope Psych Denies change in libido Endo Denies change in libido Physical Exam Const General: cooperative, healthy appearing, comfortable and no acute distress Orientation/consciousness: patient oriented x3 HEENT Face and sinus: Yes normal facial exam Mouth: moist mucous membranes Neck Neck: Yes normal visual inspection, Yes full ROM and Yes trachea midline Chest Chest palpation & inspection: normal inspection of the chest Resp Effort & Inspection: normal respiratory effort, able to speak in complete sentences and no respiratory distress GI Inspection: Yes normal to inspection Back/Spine/Pelvis Cervical Spine: normal cervical lordosis Thoracic/Lumbar Spine: thoracic and lumbar spine normal to inspection Skin General skin exam: no rashes or lesions noted Neuro General: patient oriented x3, gait normal, tone normal and moves all extremities Extrem General: Yes normal to inspection and Yes capillary refill normal Assessment & Plan Assessment & Plan (1) Nephrolithiasis: Code(s): N20.0 - Calculus of kidney Category: Medical Plan Four month follow-up ultrasound stone otherwise Orders: Orders US renal BI 4 Months N20.0 - Calculus of kidney URORISK Today N20.0 - Calculus of kidney Patient Instructions: This note is constructed using voice recognition software. While every effort has been made to ensure accuracy director business development errors may have been included. Imaging studies, laboratory and physical exam results were discussed and reviewed in detail. No major barriers to patient understanding were identified. An opportunity to ask questions regarding the treatment plan was provided. All questions were answered. The patient expressed understanding and agreement with the above treatment plan. The patient is aware they should contact our office by phone for worsening of their current condition or the appearance of new urologic symptoms. Compliance is encouraged with any medications and followup testing that is ordered. It is a privilege to participate in the urologic care of your patient. If you have any questions or concerns regarding treatment for the above conditions, or other urologic issues, please do not hesitate to contact me. The office telephone contact is [phone]. Sincerely, Dr Roberto Graham MD, [facility] - Urology Compassionate Specialist Care for the Genitourinary System Coding Level of Care Code New Pt Level 4 (28023) Diagnoses Nephrolithiasis N20.0
== END 2025-07-10 09:15 | disposition home or self-care (01) ==
LOC: HO.HUSH 08:28
PROVIDERS: PCP Physician Assistant Medical; Visit Provider Urology
DX: Z13.9 Encounter for screening, unspecified (principal); N20.0 Calculus of kidney
CPT/HCPCS: 99204

== ENCOUNTER → 2025-07-10 08:27 | Outpatient (BNVA) | payer OTHER, SELFPAY | PROVIDERS: PCP Physician Assistant Medical; Visit Provider Urology | DX: N20.0 Calculus of kidney (principal) | CPT/HCPCS: 81003 ==

== ENCOUNTER 2025-09-09 08:28 | Outpatient (AMB) | payer OTHER, SELFPAY ==
--- NOTE | 2025-09-09 08:29 | MHC.OFFWIV ---
Intake Vital Signs 09/09/25 08:30 Height 5 ft 3 in Weight 200 lb BMI 35.4 BP 132/78 Blood Pressure Location Lt brachial Position Sitting Pulse 91 Pulse Source Pulse Oximeter Temp 97.5 F Temp Source Oral Pulse Oximetry (%) 98 Oxygen Delivery Method Room Air Intake Visit Reasons: EP Sore throat Intake Note: Patient presents c/o cough, nasal congestion, sore throat, body aches x5 days Patient Tobacco Use Status: Never used Tobacco Allergies Penicillins (PCN) Allergy (Severe, Verified 07/10/25 08:40) Anaphylaxis Do you need a note to return to daycare/school/sports/work: Yes HPI EP Sore throat HPI Details This is a 30 year old male patient who presents to the [place] clinic for sore throat, body aches, nasal congestion for the past 4-5 days. and children all have been positive for strep. [facility]LY [facility] Medical History Hepatic steatosis Abnormal EKG Positive hepatitis C antibody test Elevated LFTs Hyperlipidemia Tachycardia Chiari I malformation Screening for cardiovascular condition Depression with anxiety Nephrolithiasis Hypertension History of renal calculi Surgical History H/O lithotripsy Family History Mother Substance abuse Alcoholism Hypertension Father Hypertension Hyperlipemia Diabetes Maternal Grandmother Hypertension Paternal Grandmother Hypertension Clotting disorder Maternal Grandfather Hypertension Cardiovascular disease Paternal Grandfather Hypertension Hyperlipemia Diabetes Cardiovascular disease Cancer Lung cancer Social History Housing: House Alcohol intake: current Patient Tobacco Use Status: Never used Tobacco e-Cigarette/Vaping Use: Never Used Second Hand Smoke Exposure: Yes service: No Current occupational status: employed Current occupation: [employer] Current occupational exposures/hazards: Yes Cognitive needs: No Hearing needs: No Vision needs: No Review of Systems Const All systems reviewed & are unremarkable except as noted in HPI and below Physical Exam Vital Signs: Last Vital Signs Temp 97.5 F 09/09/25 08:30 Pulse 91 09/09/25 08:30 BP 132/78 09/09/25 08:30 Pulse Ox 98 09/09/25 08:30 Oxygen Delivery Method Room Air 09/09/25 08:30 BMI result Body Mass Index 35.4 Const General: cooperative, healthy appearing and no acute distress Limitations: no limitations HEENT Head: Yes normal to inspection Ears: hearing grossly normal bilaterally General nose exam: Normal external nose present Face and sinus: Yes normal facial exam Throat: Yes abnormal tonsil (erythema, exudate) and Yes posterior oropharynx abnormal (erythematous) Neck Neck: Yes no lymphadenopathy Resp Effort & Inspection: normal respiratory effort Auscultation: clear to auscultation bilaterally Cardio Rate: regular rate Rhythm: regular rhythm Skin General skin exam: no rashes or lesions noted Extrem General: Yes no clubbing, cyanosis or edema Psych Appearance: grossly normal Mental Status: mental status grossly normal Speech and movement: Normal speech and movement present Results AMB Rapid Strep AMB Rapid Strep Negative Last Edit by Ladi Talamantes CMA on 09/09/25 08:51 Assessment & Plan Assessment & Plan (1) Pharyngitis: Code(s): J02.9 - Acute pharyngitis, unspecified Qualifiers: Pharyngitis/tonsillitis etiology: unspecified etiology Qualified Code(s): J02.9 - Acute pharyngitis, unspecified Plan: Rapid strep in the office was negative, however patient has positive exposures at home to strep from and children. Posterior oropharynx/tonsillar exam consistent with strep pharyngitis. Will treat - reviewed indications, use, possible side effects of medication. Advised increased hydration, Tylenol/Motrin and lozenges as needed for comfort. If he does not improve with treatment, he can return to the clinic for further evaluation. Patient verbalizes understanding and agrees to plan Orders: Orders AMB Rapid Strep Screen Today Z13.9 - Encounter for screening, unspecified Medications: New azithromycin For 250 mg dose pack: take 500 mg today (day 1), then 250 mg for 4 days (days 2-5) PO 6 tabs 0RF J02.9 - Acute pharyngitis, unspecified Coding Level of Care Code Est Pt Level 4 (25896) Diagnoses Pharyngitis, unspecified etiology J02.9 Pharyngitis/tonsillitis etiology: unspecified etiology
[2025-09-09 08:30] VITALS: BP 132/78; PULSE 91; TEMP 36.4; O2SAT 98; BMI 35.4
== END 2025-09-09 09:26 | disposition home or self-care (01) ==
PROVIDERS: PCP Physician Assistant Medical; Visit Provider Nurse Practitioner Family
DX: J02.9 Acute pharyngitis, unspecified (principal); Z13.9 Encounter for screening, unspecified

== ENCOUNTER → 2025-09-09 08:28 | Outpatient (BNVA) | payer OTHER, SELFPAY | PROVIDERS: PCP Physician Assistant Medical; Visit Provider Nurse Practitioner Family | DX: I10 Essential (primary) hypertension (principal); J02.9 Acute pharyngitis, unspecified | CPT/HCPCS: 87880 ==

== ENCOUNTER 2025-09-28 07:56 | Outpatient (AMB) | payer OTHER, SELFPAY ==
--- NOTE | 2025-09-28 08:13 | A.OFFPC_ITS ---
Vital Signs 09/28/25 08:32 Height 5 ft 3 in Weight 185 lb 6 oz BMI 32.8 BP 110/80 Blood Pressure Location Lt brachial Position Sitting Pulse 88 Pulse Source Pulse Oximeter Temp 97.8 F Temp Source Temporal Artery Scan Pulse Oximetry (%) 96 Oxygen Delivery Method Room Air Intake Visit Reasons: annual physical exam Intake Note: Panda presents in the office today for his annual exam. Allergies Penicillins (PCN) Allergy (Severe, Verified 09/28/25 08:31) Anaphylaxis Medication List - Last Reconciled 09/28/25 by APPLE Beltran fluoxetine 10 mg PO DAILY ketoconazole 2% 1 appl topical BID 4 weeks lisinopril-hydrochlorothiazide 10-12.5 mg 1 tab PO DAILY Tobacco use date assessed: 09/28/25 Dental Screening Dental Screen Date: 09/28/25 Did you have a dental visit in the last 12 months?: Yes Did you have a dental problem in the last 6 months where you did not have access to dental care?: No Was dental information given to patient?: Patient has dentist HPI HPI Comments History of Present Illness Details This is a 30-year-old male with a past medical history of nephrolithias is, hypertension and depression with anxiety presenting for a physical. Depression with anxiety-Zoloft ineffective. He takes fluoxetine 10 mg. He has a stressful job. 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 Hypertension-treated with lisinopril-hydrochlorothiazide 10-12.5 mg daily. He had an EKG that showed possible LVH. Echocardiogram was ordered for further evaluation however further documentation needed to be submitted to the insurance company. He never heard about scheduling it. He denies chest pain or shortness of breath. Vitals are normal today, but previously he did have an episode of tachycardia. He endorses snoring. His partner says it is very severe. He feels exhausted during the day. He wakes up at least once during the night. He does not feel rested after sleeping. He goes to sleep at 9pm to 10:30 pm and wakes up at 5:30am. He drinks alcohol once per month. He has been working on his weight, and eating healthier. He was sick with what he says was a viral infection. He went to urgent care a couple weeks ago. They treated him for strep because another member of the household had strep throat, but he did not test positive. He has some canker sores which he always gets when he is sick. His left ear has been a little bit achy, but it is not constant pain. Denies fevers or chills. Patient thinks it has been more than 10 years since last tetanus vaccine. Girlfriend has a 6-month-old baby. Agreeable to Tdap today. He is also due for the flu shot, and this is administered today. Patient has a history of hepatic steatosis, elevated LFT. He also had a positive hepatitis-C antibody test, and says it has been positive in the past but viral load negative. He was supposed to return for additional testing, but he did not get back to the lab yet. Denies abdominal pain, nausea, vomiting, jaundice. ROS: Constitutional: No unexplained weight loss, fever, chills or night sweats. Eyes: No vision changes, blurry vision, double vision, eye pain, eye redness, eye discharge. ENT: No hearing loss, sneezing, congestion, runny nose or sore throat. Respiratory: No shortness of breath, cough or sputum production. Cardiovascular: No chest pain, chest pressure or chest discomfort. No palpitations or pedal edema. Gastrointestinal: No anorexia, nausea, vomiting or diarrhea. No abdominal pain or blood in stool. Genitourinary: No dysuria, hematuria, urinary frequency. Patient evaluated by Dr. Lowry for kidney stones. Neurologic: No headache, dizziness, syncope, unilateral weakness, ataxia, numbness or tingling in the extremities. Musculoskeletal: No muscle pain, back pain, joint pain or swelling. Hematologic/Lymphatics: No bleeding or bruising. No painful lymph nodes. Skin: Endorses a scaly, dry rash on the bottoms of his feet that is chronic. Past treatment with topical steroid and CeraVe. Endocrine: No cold or heat intolerance. No polyuria or polydipsia. Psychiatric: No SI/HI. Physical exam: Constitutional: Alert, in no distress. Head: Normocephalic. Eyes: Pupils are equal, round and reactive to light. Extraocular muscles intact. Ear, Nose and Throat: Canals clear. TMs normal. Normal nasal mucosa. No nasal discharge. Aphthous ulcer on the tongue and on the roof of the mouth on the left side. No exudates. Tonsils 2+. Neck: Supple, Full range of motion. No lymphadenopathy. No palpable thyroid masses. Respiratory: Clear to auscultation. Cardiovascular: S1 S2 regular. No murmurs. Gastrointestinal: Abdomen soft, non-tender, non-distended. Normal bowel sounds. No palpable masses. Genitourinary: Deferred Neurologic: No focal neurological deficits. Symmetric patellar reflexes. Moves all extremities spontaneously. Skin: Desquamative, dry rash on the plantar surface of the right foot, dry scaly rash on the plantar surface of the left heel Musculoskeletal: No gross deformities. Normal range of motion. Extremities: Warm and well perfused. No clubbing, cyanosis or edema. Intact peripheral pulses bilaterally Psychiatric: Normal mood and affect [facility] Medical History (Updated 09/28/25 @ 09:10 by APPLE Beltran) Tinea pedis Daytime somnolence Non-restorative sleep Routine physical examination Hepatic steatosis Abnormal EKG Positive hepatitis C antibody test Elevated LFTs Hyperlipidemia Tachycardia Chiari I malformation Screening for cardiovascular condition Depression with anxiety Nephrolithiasis Hypertension History of renal calculi Surgical History H/O lithotripsy Family History Mother Substance abuse Alcoholism Hypertension Father Hypertension Hyperlipemia Diabetes Maternal Grandmother Hypertension Paternal Grandmother Hypertension Clotting disorder Maternal Grandfather Hypertension Cardiovascular disease Paternal Grandfather Hypertension Hyperlipemia Diabetes Cardiovascular disease Cancer Lung cancer Social History (Updated 09/28/25 @ 08:32 by Juliet Wolf CMA) Housing: House Alcohol intake: current Patient Tobacco Use Status: Never used Tobacco e-Cigarette/Vaping Use: Never Used Second Hand Smoke Exposure: Yes Use of substances other than those prescribed or required for medical reasons: No service: No Current occupational status: employed Current occupation: [employer] Current occupational exposures/hazards: Yes Cognitive needs: No Hearing needs: No Vision needs: No Questionnaire PHQ-9 Over the last 2 weeks, how often have you been bothered by any of the following problems? 1. Little interest or pleasure in doing things: not at all 2. Feeling down, depressed, or hopeless: not at all 3. Trouble falling or staying asleep, or sleeping too much: several days 4. Feeling tired or having little energy: not at all 5. Poor appetite or overeating: not at all 6. Feeling bad about yourself - or that you are a failure or have let yourself or your family down: not at all 7. Trouble concentrating on things, such as reading the newspaper or watching television: not at all 8. Moving or speaking so slowly that other people could have noticed. Or the opposite - being so fidgety or restless that you have been moving around a lot more than usual: not at all 9. Thoughts that you would be better off or of hurting yourself in some way: not at all Total score: 1 Depression Screening Interpretation: Negative Depression Screening Done: Yes [id number] - PHQ-9 Billing: Yes Source: Developed by Drs. Vineet Murray, Shayy Medina, Naif Stark and colleagues, with an educational mehdi from [employer]. Thrive Questionnaire Date Thrive assessed: 09/28/25 I am a: Patient What is your living situation today?: I have a steady place to live Within the past 12 months, did the food you bought not last and you didn't have the money to get more?: Never true Within the past 12 months, did you worry whether your food would run out before you got money to buy more?: Never true Do you have trouble paying for medicines?: No Do you have trouble getting transportation to medical appointments?: No Do you have trouble paying your heating and electricity bill?: No Do you have trouble taking care of your child, family member or friend?: No Do you have trouble with day-to-day activities such as bathing, preparing meals, shopping, managing finances, etc.?: No Are you currently unemployed and looking for a job?: No Are you interested in more education?: No Please select the resources that you would like help with: None Currently or been in a relationship where the following occur: No concerns reported THRIVE Score: 0 AUDIT C Alcohol Use Questionnaire (AUDIT-C) 1. How often do you have a drink containing alcohol?: Monthly or less 2. How many drinks containing alcohol do you have on a typical day when you are drinking?: 1 or 2 3. How often do you have six or more drinks on one occasion?: Never Total Score: 1 TONY-7 AMB Questionnaire TONY-7 Date TONY - 7 assessed: 03/19/25 Feeling nervous, anxious, or on edge: 0 = Not at all Not being able to stop or control worryin = Not at all Worrying too much about different things: 0 = Not at all Trouble relaxin = Not at all Being so restless that it is hard to sit still: 0 = Not at all Becoming easily annoyed or irritable: 0 = Not at all Feeling afraid as if something awful might happen: 0 = Not at all Total TONY-7 score (0-4 normal; 5-9 mild; 10-14 moderate; 15-21 severe): 0 Source: Developed by Drs. Vineet Murray, Shayy Medina, Naif Stark and colleagues, with an educational mehdi from [employer]. Physical exam (Primary Care) Vital Signs: Last Vital Signs Temp 97.8 F 09/28/25 08:32 Pulse 88 09/28/25 08:32 BP 110/80 09/28/25 08:32 Pulse Ox 96 09/28/25 08:32 Oxygen Delivery Method Room Air 09/28/25 08:32 BMI result Body Mass Index 32.8 Tobacco/Smoking Status: Tobacco use Status Tobacco use date assessed 09/28/25 09/28/25 08:38 Patient Tobacco Use Status Never used Tobacco 09/28/25 08:32 e-Cigarette/Vaping Use Never Used 09/28/25 08:32 PHQ-9: PHQ-9 Score PHQ-9: Total score 1 09/28/25 08:38 Depression Screening Interpretation: Negative Thrive Assessment: Date of Thrive Assessment Date Thrive assessed 09/28/25 09/28/25 08:38 Currently or been in a relationship where the following occur: No concerns reported Coding Level of Care Code Est Pt Prev Care 18-39y(23577) Complex visit Add On G2211 Diagnoses Routine physical examination Z00.00 Positive hepatitis C antibody test R76.8 Daytime somnolence R40.0 Non-restorative sleep G47.8 Abnormal EKG R94.31 Primary hypertension I10 Hypertension type: primary hypertension Depression with anxiety F41.8 Tinea pedis B35.3 Additional Codes PHQ-9 - 05349 - PHQ-9 Billing: Yes ([id number]) Assessment & Plan Assessment & Plan (1) Routine physical examination: Code(s): Z00.00 - Encounter for general adult medical examination without abnormal findings Category: Medical Plan: Patient is seen today for a routine physical. As part of this visit we reviewed the following issues, which are considered and essential part of preventative health in this age group: - Testicular cancer screening, which includes self exam teaching - Blood pressure screening - Cholesterol screening - Nutritional and exercise counseling - Counseling of injury prevention including fire prevention, smoke alarms and seat belt usage - Screening for depression - Prevention of and/or testing for infectious diseases agreeable to screenings - Education about skin cancer - Recommendations about immunizations - Recommendation of an eye exam - Screening for substance abuse (2) Positive hepatitis C antibody test: Code(s): R76.8 - Other specified abnormal immunological findings in serum Category: Medical Plan: Patient was supposed to return to have hep C viral load checked. Repeat hep C antibody test and check hep C viral load. (3) Daytime somnolence: Code(s): R40.0 - Somnolence Category: Medical Plan: Avoid alcohol. Sleep with your head propped up. Continue efforts at weight loss. Sleep study ordered. (4) Non-restorative sleep: Code(s): G47.8 - Other sleep disorders Category: Medical (5) Abnormal EKG: Code(s): R94.31 - Abnormal electrocardiogram [ECG] [EKG] Category: Medical Plan: Patient could not stay today to repeat EKG. History of episode of tachycardia, hypertension, an EKG showed possible LVH March 2025. Proceed with echocardiogram to rule out structural heart disease. (6) Hypertension: Code(s): I10 - Essential (primary) hypertension Category: Medical Qualifiers: Hypertension type: primary hypertension Qualified Code(s): I10 - Essential (primary) hypertension Plan: Controlled. Continue lifestyle modifications. Low-sodium diet and avoidance of caffeine recommended. Continue current medication. (7) Depression with anxiety: Code(s): F41.8 - Other specified anxiety disorders Category: Medical Plan: Continue fluoxetine 10 mg daily. (8) Tinea pedis: Code(s): B35.3 - Tinea pedis Category: Medical Plan: Treat with ketoconazole topical cream twice daily for 2-4 weeks. Use until the rashes entirely resolved. Plan Follow up in 6 months. Orders: Orders TDaP Immunization Today Z23 - Encounter for immunization Influenza [id number] Immunization Today Z23 - Encounter for immunization CA echo transthoracic complete Today I10 - Essential (primary) hypertension, R94.31 - Abnormal electrocardiogram [ECG] [EKG] Hepatitis C Antibody Today Z20.2 - Contact with and (suspected) exposure to infections with a predominantly sexual mode of transmission HIV Ab/Ag Today Z20.2 - Contact with and (suspected) exposure to infections with a predominantly sexual mode of transmission CT NG by PCR Urine Today Z20.2 - Contact with and (suspected) exposure to infections with a predominantly sexual mode of transmission RT home sleep study Today G47.8 - Other sleep disorders, R40.0 - Somnolence Lipid Panel Today E78.5 - Hyperlipidemia, unspecified, I10 - Essential (primary) hypertension, R76.8 - Other specified abnormal immunological findings in serum, Z00.00 - Encounter for general adult medical examination without abnormal findings Comprehensive Met. Panel Today I10 - Essential (primary) hypertension, R76.8 - Other specified abnormal immunological findings in serum, Z00.00 - Encounter for general adult medical examination without abnormal findings Complete Blood Count no Diff Today I10 - Essential (primary) hypertension, R76.8 - Other specified abnormal immunological findings in serum, Z00.00 - Encounter for general adult medical examination without abnormal findings Syphilis Screen Today Z20.2 - Contact with and (suspected) exposure to infecti ons with a predominantly sexual mode of transmission Medications: New Boostrix Tdap (diphth,pertus(acell),tetanus) 0.5 mL IM ONCE 0.5 mL 0RF NS Z23 - Encounter for immunization Fluarix (PF) (flu vac ts (6mos up)-PF) 0.5 mL IM ONCE 0.5 mL 0RF NS Z23 - Encounter for immunization ketoconazole 2% 1 appl topical BID 60 grams 0RF 4 weeks
[2025-09-28 08:32] VITALS: BP 110/80; PULSE 88; TEMP 36.6; O2SAT 96; BMI 32.8
== END 2025-09-28 09:13 | disposition home or self-care (01) ==
LOC: HO.HMCFM 07:57
PROVIDERS: PCP Physician Assistant Medical; Visit Provider Physician Assistant Medical
DX: Z00.00 Encounter for general adult medical examination without abnormal findings (principal); R76.89 Other specified abnormal immunological findings in serum; R40.0 Somnolence; G47.8 Other sleep disorders; R94.31 Abnormal electrocardiogram [ECG] [EKG]; I10 Essential (primary) hypertension; F41.8 Other specified anxiety disorders; B35.3 Tinea pedis; Z23 Encounter for immunization

== ENCOUNTER → 2025-09-28 07:56 | Outpatient (BNVA) | payer OTHER, SELFPAY | PROVIDERS: PCP Physician Assistant Medical; Visit Provider Physician Assistant Medical | DX: Z00.00 Encounter for general adult medical examination without abnormal findings (principal); Z23 Encounter for immunization; R76.89 Other specified abnormal immunological findings in serum; R40.0 Somnolence; G47.8 Other sleep disorders; R94.31 Abnormal electrocardiogram [ECG] [EKG]; I10 Essential (primary) hypertension; F41.8 Other specified anxiety disorders; B35.3 Tinea pedis; Z79.899 Other long term (current) drug therapy; Z13.31 Encounter for screening for depression | CPT/HCPCS: 90471; 90472; 90656; 90715; 96127 ==

== ENCOUNTER 2025-10-01 00:21 | Emergency (ER) | payer OTHER, SELFPAY ==
--- NOTE | ~2025-10-01 | CT_ITS ---
CLINICAL HISTORY: left flank pain CT abdomen and pelvis without contrast Comparison: None provided Findings: LIMITED CHEST: Lung bases are clear. LIVER: No focal liver lesion. BILIARY: No gallbladder wall thickening, radiopaque stone, or ductal dilatation. PANCREAS: No mass or ductal dilatation. SPLEEN: No splenomegaly. KIDNEYS: Mild left hydroureteronephrosis with a couple of stones measuring 4 mm collectively in the left mid ureter. Possible punctate 1 mm stone in the right inferior pole. No hydronephrosis. ADRENALS: No nodule. VASCULAR: No aneurysm. RETROPERITONEUM: No lymphadenopathy or mass. BOWEL/MESENTERY: No evidence of obstruction. No free fluid or air. Normal appendix. ABDOMINAL WALL: No mass or significant abnormality. URINARY BLADDER: No focal wall thickening. PELVIC NODES: No pelvic lymphadenopathy. PELVIC ORGANS: Normal for age. BONES: No acute fracture. OTHER: Negative. IMPRESSION: Mild left hydroureteronephrosis with a couple of stones measuring 4 mm collectively in the left mid ureter. This document has been electronically signed by: Fang Min MD on 10/01/2025 01:42:11
[2025-10-01 00:25] VITALS: BP 141/94; BP 150/88; PULSE 69; PULSE 81; RESP 18; TEMP 36.6; O2SAT 97; O2SAT 98; BMI 32.8
[2025-10-01 00:52] LABS: MANUAL DIFF FLAG NO
[2025-10-01 00:59] LABS: Hematocrit 40.3 % (42.0-52.0); Hemoglobin 13.9 g/dl (14.0-18.0); Imm Gran Abs Auto 0.06 X10*3/uL (0.00-0.03); Imm Gran Pct Auto 0.4 % (0.0-0.4); Lymphocytes Absolute Auto 1.2 X10*3/uL (1.2-4.9); Mean Corpuscular HGB Conc 34.5 g/dl (31.0-36.0); Mean Corpuscular Hemoglobin 31.4 pg (27.0-33.0); Mean Corpuscular Volume 91.2 fL (80.0-98.0); NRBC Abs Auto 0.000 X10*3/uL (0.0-0.012); NRBC Pct Auto 0.0 /100WBC (0.0-0.2); Platelet Count 276 X10*3/uL (160-400); Red Blood Count 4.42 X10*6/uL (4.60-5.80); White Blood Count 13.6 X10*3/uL (4.8-10.8)
--- NOTE | 2025-10-01 01:04 | ECG_ITS ---
Test Reason : FLANK PAIN Blood Pressure : */* mmHG Vent. Rate : 65 BPM Atrial Rate : 65 BPM P-R Int : 138 ms QRS Dur : 86 ms QT Int : 374 ms P-R-T Axes : 34 16 11 degrees QTcB Int : 388 ms Normal sinus rhythm with sinus arrhythmia Normal ECG No previous ECGs available Referred By: Joseph Hall Electronically Signed By: CASEY LARKIN
[2025-10-01 01:06] LABS: Alanine Aminotransferase 41 U/L (0-40); Albumin Level 4.7 g/dL (3.5-5.0); Alkaline Phosphatase 90 U/L (39-117); Anion Gap 11 (12-20); Aspartate Amino Transferase 32 U/L (5-37); Blood Urea Nitrogen 16 mg/dL (9-16); Calcium 9.4 mg/dL (8.4-10.2); Carbon Dioxide 25 mmol/L (22-29); Chloride 105 mmol/L (96-108); Creatinine Clr Calc Pharmacy 95.7; Estimated Glomerular Filt Rate > 60; Lipase 16 U/L (8-78); Magnesium 1.9 mg/dL (1.6-2.6); Potassium 4.0 mmol/L (3.3-5.1); Sodium 137 mmol/L (135-145); Total Protein 7.3 g/dL (6.5-8.0)
--- NOTE | 2025-10-01 01:26 | ED.MALEGU ---
HPI - Male Genitourinary General Chief complaint: Urogenital-Male Stated complaint: FLANK PAIN Time Seen by Provider: 10/01/25 00:57 Source: patient, RN notes reviewed and old records reviewed Mode of arrival: ambulatory Limitations: no limitations History of Present Illness ED Provider: Isabel GÓMEZ Narrative: Patient is a 30 year old male with a past medical history of nephrolithiasis, HTN, HLD, and hepatic steatosis presenting today with a few hour history of left flank pain, chills, nausea with one episode of vomiting, and chest pain. Pt states that his urinary stream is weak and felt like he had to push through something in order to urinate. Denies hematuria or burning with urination. Has a history of kidney stones, last was 1 year ago and 5 years ago. Related Data Previous Rx's ?Medication ?Instructions ?Recorded lisinopril 10 1 tab PO DAILY #90 tabs 03/19/25 mg-hydrochlorothiazide 12.5 mg tablet fluoxetine 10 mg capsule 10 mg PO DAILY #90 caps 07/10/25 ketoconazole 2 % topical cream 1 appl topical BID 4 weeks #60 09/28/25 grams levofloxacin 750 mg tablet 750 mg PO DAILY #7 tabs 10/01/25 ondansetron 4 mg disintegrating 4 mg PO Q8H PRN nausea and 10/01/25 tablet vomiting #20 tabs oxycodone 5 mg tablet 5 mg PO Q8H PRN severe pain (scale 10/01/25 score 7-10) #9 tabs tamsulosin 0.4 mg capsule 0.4 mg PO DAILY #7 caps 10/01/25 Allergies Allergy/AdvReac Type Severity Reaction Status Date / Time Penicillins (PCN) Allergy Severe Anaphylaxis Verified 10/01/25 00:32 Review of Systems Constitutional: Constitutional: Reports as per HPI, Denies fatigue, Denies fever(s) and Denies headache(s) ENT: Denies headache(s) Cardiovascular: Cardiovascular: Denies dyspnea Respiratory: Respiratory: Denies cough and Denies dyspnea Gastrointestinal: Gastrointestinal: Denies abdominal pain and Denies constipation Genitourinary: Genitourinary: Denies hematuria, Reports oliguria, Reports difficulty urinating, Denies dysuria and Reports flank pain (left) Integumentary/Breasts: Skin/Breast: Denies rash Neurologic: Denies headache(s) and Denies focal weakness Endocrine: Endocrine: Denies fatigue PMFSH Past Medical History Medical History (Updated 10/01/25 @ 02:07 by Joseph Hall) Tinea pedis Daytime somnolence Non-restorative sleep Routine physical examination Hepatic steatosis Abnormal EKG Positive hepatitis C antibody test Elevated LFTs Hyperlipidemia Tachycardia Chiari I malformation Screening for cardiovascular condition Depression with anxiety Nephrolithiasis Hypertension History of renal calculi Surgical History H/O lithotripsy Family History Family History Mother Substance abuse Alcoholism Hypertension Father Hypertension Hyperlipemia Diabetes Maternal Grandmother Hypertension Paternal Grandmother Hypertension Clotting disorder Maternal Grandfather Hypertension Cardiovascular disease Paternal Grandfather Hypertension Hyperlipemia Diabetes Cardiovascular disease Cancer Lung cancer Social History Social History (Updated 09/28/25 @ 08:32 by Juliet Wolf CMA) Housing: House Alcohol intake: current Patient Tobacco Use Status: Never used Tobacco e-Cigarette/Vaping Use: Never Used Second Hand Smoke Exposure: Yes Advance Directives: No Advance Directives Information Provided: Yes service: No Current occupational status: employed Current occupation: [employer] Current occupational exposures/hazards: Yes Cognitive needs: No Hearing needs: No Vision needs: No Physical Exam Vital Signs: Vital Signs: Last Vital Signs Temp 97.9 F 10/01/25 00:25 Pulse 67 10/01/25 02:28 Resp 18 10/01/25 02:28 BP 122/79 10/01/25 02:28 Pulse Ox 97 10/01/25 02:28 O2 Del Method Room Air 10/01/25 02:28 BMI result Body Mass Index 32.8 Const: General: healthy appearing, no acute distress, alert and awake Nutritional Appearance: well nourished Orientation/consciousness: patient oriented x3 HEENT: Head: Yes normocephalic and Yes atraumatic Eyes: Eyelids: Yes eyelids normal Conjunctivae: conjunctivae normal Sclerae: sclerae normal Corneas: corneas normal Neck: Neck: Yes full ROM Resp: Effort & Inspection: normal respiratory effort, able to speak in complete sentences, no audible wheezes and not labored GI: Inspection: No distended Palpation (GI): Soft to palpation, not firm, Tenderness to palpation present (GI) in the LLQ, no guarding and not rigid Auscultation: normoactive bowel sounds : General: Yes bladder normal to palpation and Yes CVA tenderness on the left Back/Spine/Pelvis: Back: CVA tenderness Skin: General skin exam: no rashes or lesions noted and elasticity normal Neuro: General: patient oriented x3 Cognition (Neuro): normal cognition Medications Administered Discontinued Medications Generic Name Dose Route Start Last Admin Trade Name Elder PRN Reason Stop Dose Admin Sodium Chloride 1,000 mls @ 999 mls/hr 10/01/25 01:15 10/01/25 02:47 Ns IV 10/01/25 02:15 Infused .Q1H1M ISAI Infusion Ketorolac Tromethamine 30 mg 10/01/25 01:04 10/01/25 01:35 Ketorolac Tromethamine 30 Mg/Ml Vial IVPUSH 10/01/25 01:05 30 mg ONCE ONE Administration Morphine Sulfate 4 mg 10/01/25 01:53 10/01/25 02:03 Morphine Sulfate 4 Mg/Ml Cartridge IVPUSH 10/01/25 01:54 4 mg ONCE ONE Administration Protocol Medical Decision Making Medical Decision Making [facility] Narrative: 30-year-old male presenting for evaluation of left flank pain with associated dysuria. He has a history of obstructive uropathy and is presenting very similar. He is nontoxic appearing. Vital signs are stable. The patient does have a mild leukocytosis which may be reactive. Still awaiting urinalysis to evaluate for complicated UTI. CT scan shows multiple stones left mid ureter causing obstructive uropathy. Starts measuring up to 4 mm. There was no evidence of renal injury from this. The patient is not septic. I think we can control the patient's pain and he can be discharged to follow up with Urology. He sees Dr. Graham Differential Diagnosis Differential Diagnoses: The differential diagnosis associated with the presentation includes Obstructive uropathy UTI Pyelonephritis Abdominal pain Admission/Observation Consideration of admission/observation: Escalation of care including admission/observation considered Lab Data [facility] Lab Attestation statement: I reviewed the patient's lab results. As above 10/01/25 00:47 10/01/25 00:47 Labs: Lab Results 10/01/25 10/01/25 Range/Units 00:47 02:54 WBC 13.6 H (4.8-10.8) X10*3/uL RBC 4.42 L (4.60-5.80) X10*6/uL Hgb 13.9 L (14.0-18.0) g/dl Hct 40.3 L (42.0-52.0) % MCV 91.2 (80.0-98.0) fL MCH 31.4 (27.0-33.0) pg MCHC 34.5 (31.0-36.0) g/dl RDW 12.5 (11.0-16.0) % Plt Count 276 (160-400) X10*3/uL MPV 10.0 (9.4-12.4) fL Immature Gran % (Auto) 0.4 (0.0-0.4) % Neut % (Auto) 84.0 H (45-73) % Lymph % (Auto) 8.5 L (20-40) % Hitchcock % (Auto) 6.8 (2-11) % Eos % (Auto) 0.1 (0-4) % Baso % (Auto) 0.2 (0-2) % Lymph # (Auto) 1.2 (1.2-4.9) X10*3/uL Hitchcock # (Auto) 0.9 (0.1-1.2) X10*3/uL Eos # (Auto) 0.0 (0.0-0.4) X10*3/uL Baso # (Auto) 0.0 (0.0-0.2) X10*3/uL Abs Immat Gran (auto) 0.06 H (0.00-0.03) X10*3/uL Absolute Neuts (auto) 11.4 H (2.0-8.3) x10*3/uL Absolute Nucleated RBC 0.000 (0.0-0.012) X10*3/uL Nucleated RBC % (auto) 0.0 (0.0-0.2) /100WBC Sodium 137 (135-145) mmol/L Potassium 4.0 (3.3-5.1) mmol/L Chloride 105 (96-108) mmol/L Carbon Dioxide 25 (22-29) mmol/L Anion Gap 11 L (12-20) BUN 16 (9-16) mg/dL Creatinine 1.08 (0.5-1.4) mg/dL Estim Creat Clear Calc 95.7 Estimated GFR > 60 Random Glucose 116 H (60-115) mg/dL Calcium 9.4 D (8.4-10.2) mg/dL Magnesium 1.9 (1.6-2.6) mg/dL Total Bilirubin 0.5 (0.0-1.0) mg/dL AST 32 (5-37) U/L ALT 41 H (0-40) U/L Alkaline Phosphatase 90 (39-117) U/L Total Protein 7.3 (6.5-8.0) g/dL Albumin 4.7 (3.5-5.0) g/dL Lipase 16 (8-78) U/L Urine Color Yellow Urine Appearance Clear Urine pH 5.5 (5.0-9.0) Ur Specific Cofield >= 1.030 H (1.005-1.025) Urine Protein 100 (2+) H (Neg-Trace) mg/dL Urine Glucose (UA) Negative (Negative) mg/dL Urine Ketones 40 (Negative) mg/dL Urine Blood Large (3+) H (Negative) Urine Nitrite Negative (Negative) Ur Leukocyte Esterase Trace H (Negative) Discharge Plan Discharge Clinical Impression: Acute unilateral obstructive uropathy Patient Disposition: Home, Self-Care Instructions: Ureteral Stones (ED) Additional Instructions: You have several small stones measuring up to 4 mm in the left mid ureter. These should pass on their own. I recommend taking ibuprofen/Tylenol as needed for pain. You may use oxycodone for more severe, breakthrough pain. This may make you drowsy, do not drink alcohol or drive after taking it. Take tamsulosin daily. Follow up with your urologist and return for new or worsening symptoms. Take the levofloxacin daily as well pain You should not be very active while taking this medication avoid heavy lifting or running as this can increase risk of tendon injury. Prescriptions: New tamsulosin 0.4 mg capsule 0.4 mg PO DAILY Qty: 7 0RF levofloxacin 750 mg tablet 750 mg PO DAILY Qty: 7 0RF ondansetron 4 mg tablet,disintegrating 4 mg PO Q8H PRN (Reason: nausea and vomiting) Qty: 20 0RF oxycodone 5 mg tablet 5 mg PO Q8H PRN (Reason: severe pain (scale score 7-10)) Qty: 9 0RF Rx Instructions: Partial Fill upon patient request. No Action fluoxetine 10 mg capsule 10 mg PO DAILY Qty: 90 3RF ketoconazole 2 % cream 1 appl topical BID 28 Days Qty: 60 0RF lisinopril-hydrochlorothiazide 10-12.5 mg tablet 1 tab PO DAILY Qty: 90 3RF Print Language: Martiniquais
--- NOTE | 2025-10-01 01:56 | PC.NURSE ---
20 g IV placed in right forearm
[2025-10-01 02:03] VITALS: RESP 18
[2025-10-01 02:28] VITALS: BP 122/79; PULSE 67; RESP 18; O2SAT 97
[2025-10-01 03:03] LABS: Appearance Urine Clear; Glucose Urine UA Negative (Negative); PH 5.5 (5.0-9.0); Specific Gravity - Urine >= 1.030 (1.005-1.025); UMIC TRIGGER UACC YES
[2025-10-01 03:34] LABS: UACC Culture Trigger YES
[2025-10-01 03:56] VITALS: BP 129/77; PULSE 92; RESP 18; TEMP -17.7; TEMP 0; O2SAT 98
== END 2025-10-01 03:57 | disposition home or self-care (01) ==
PROVIDERS: Emergency Provider Emergency Medicine; PCP Physician Assistant Medical
DX: N13.9 Obstructive and reflux uropathy, unspecified (principal); I10 Essential (primary) hypertension; Z87.442 Personal history of urinary calculi; Z79.899 Other long term (current) drug therapy
CPT/HCPCS: 36415; 74176; 80053; 81001; 83690; 83735; 85025; 87086; 93005; 96361; 96374; 96375; 99284; 99285; J1885; J2270

== ENCOUNTER → 2025-10-01 01:04 | Outpatient (BNV) | payer OTHER, SELFPAY | PROVIDERS: PCP Physician Assistant Medical; Visit Provider Student in an Organized Health Care Education/Training Program | DX: N13.2 Hydronephrosis with renal and ureteral calculous obstruction (principal) | CPT/HCPCS: 74176 ==

== ENCOUNTER → 2025-10-01 01:04 | Outpatient (BNV) | payer OTHER, SELFPAY | PROVIDERS: Emergency Provider Emergency Medicine; PCP Physician Assistant Medical; Visit Provider Internal Medicine | DX: R10.A0 Flank pain, unspecified side (principal) | CPT/HCPCS: 93010 ==